=== PATIENT | male | born 1960 | race Hispanic/Latino ===

== ENCOUNTER 2017-06-09 06:53 | Day surgery (SDC) | payer MEDICARE, OTHER ==
[2017-06-09] MEDS ORDERED: Propofol 10 mg/ml Inj (20 ML) ONE (08:57)
--- NOTE | 2017-06-09 08:58 | CP.SDSHP ---
Same Day Surgery H & P - History Proposed Procedure: colonoscopy Pre-Op Diagnosis: family history of colon cancer - Allergies Allergies: Allergies No Known Allergies Allergy (Verified 06/09/17 07:10) - Physical Exam General Appearance: NAD Vital Signs: Vital Signs 06/09/17 07:17 Temperature 97.5 F L Pulse Rate 80 Respiratory 20 Rate Blood Pressure 116/77 O2 Sat by Pulse 18 L Oximetry Mental Status: Alert & Oriented x3 Neuro: WNL Heart: WNL Lungs: WNL GI: WNL - {Optional Preform as Required} Abdomen: WNL - Impression Pt. Evaluated Today:Candidate for Anesthesia & Procedure: Yes - Date & Time Date: 06/09/17 Time: 08:58 Short Stay Discharge - Short Stay Discharge Admitting Diagnosis/Reason for Visit: FAMILY HISTORY OF MALIGNANT NEOPLASM OF DIGESTIVE Disposition: HOME/ ROUTINE
[2017-06-09] MEDS ORDERED: Lidocaine Hydrochloride 5 ML INJ ONE (09:06)
[2017-06-09 09:59] VITALS: TEMP 98.4; O2SAT 100
[2017-06-09 10:46] VITALS: BP 111/60; PULSE 68; RESP 15
== END 2017-06-09 10:40 | disposition home or self-care (01) ==
LOC: C.ENDO 06:53
PROVIDERS: ATTEND Internal Medicine Gastroenterology
DX: Z12.11 Encounter for screening for malignant neoplasm of colon (principal); Z80.0 Family history of malignant neoplasm of digestive organs; D12.0 Benign neoplasm of cecum; D12.2 Benign neoplasm of ascending colon; D12.3 Benign neoplasm of transverse colon; K64.0 First degree hemorrhoids
CPT/HCPCS: 45380; 45385; 88305; J2704